=== PATIENT | male | born 2005 | race African-American/Black ===

== ENCOUNTER 2024-12-12 08:41 | Emergency (ER) | payer OTHER, SELFPAY ==
[2024-12-12 08:50] VITALS: BP 128/83; PULSE 70; RESP 18; TEMP 36.6; O2SAT 98; BMI 35.7
--- NOTE | 2024-12-12 09:07 | PC.NURSE ---
patient has bug bites to right arm, states he was outside Monday night when he got them, noted to be red from what appears to be scratching
--- NOTE | 2024-12-12 10:01 | ED_ITS ---
HPI - General Adult General Chief complaint: General Medical Stated complaint: bug bite Time Seen by Provider: 12/12/24 09:40 Source: patient, RN notes reviewed and old records reviewed Mode of arrival: ambulatory History of Present Illness ED Provider: Danelle Soriano PA-C [facility] narrative: 19-year-old male with no significant past medical history presenting to the ED complaining of red, inflamed, pruritic bug bites to NEO x 2 days. Denies any known new exposures, sleeping in new locations, camping, hiking. Admits he currently resides at [facility]. Related Data Previous Rx's ?Medication ?Instructions ?Recorded hydrocortisone 1 % topical cream 1 appl topical BID PRN rash #28.4 12/12/24 (Anti-Itch (hydrocortisone)) grams Allergies Allergy/AdvReac Type Severity Reaction Status Date / Time No Known Allergies Allergy Verified 12/12/24 08:51 Review of Systems Review of Systems: Yes all other systems are reviewed and are negative Constitutional: Constitutional: Reports as per [facility] Past Medical History Attestation statement: The following information was validated with the patient. Source: old records reviewed Social History Social History Advance Directives: No Advance Directives Information Provided: Yes Physical Exam ED Vital Signs: Vital Signs - 24 hr 12/12/24 08:50 12/12/24 10:08 Temperature 97.9 F Pulse Rate 70 65 Respiratory Rate 18 18 Blood Pressure 128/83 146/87 H Pulse Oximetry 98 95 Oxygen Delivery Method Room Air Room Air BMI result Body Mass Index 35.7 Const General: cooperative, healthy appearing and no acute distress Orientation/consciousness: patient oriented x3 Limitations: no limitations HENMT Head: Yes normal to inspection and Yes atraumatic Ears: hearing grossly normal bilaterally General nose exam: Normal external nose present Face and sinus: Yes normal facial exam Mouth: no drooling Eyes General: appearance normal, both eyes and all related structures EOM: EOMs intact bilaterally Neck Neck: Yes normal visual inspection and Yes no meningeal signs Resp Effort & Inspection: normal respiratory effort, no respiratory distress and no stridor Cardio Rate: regular rate Skin Other: Erythematous, inflamed bug bites noted to right forearm, hand, elbow with overlying excoriations. No vesicles/streaking. No palm/sole involvement. Wounds: no wounds Neuro General: patient oriented x3, tone normal and no meningeal signs Cranial nerves: Yes CN's II-XII intact bilaterally Gait exam (Neuro): Normal gait present Extrem General: Yes normal to inspection Medical Decision Making Medical Decision Making MDM Narrative: 19-year-old male with no significant past medical history presenting to the ED complaining of red, inflamed, pruritic bug bites to RUE x 2 days. On exam vital signs stable, NAD, nontoxic appearing, physical exam as noted above consistent with bug bites. No evidence of overlying cellulitis/infection or abscess formation. No evidence of anaphylaxis Plan: Topical hydrocortisone, Benadryl and Zyrtec recommended Please refer to course for remaining clinical decision making, interpretation of labs/imaging results, and discussions with consultants and/or family members. Results discussed with patient including worrisome signs and symptoms and strict return precautions, and when to return to the emergency department. They verbalized understanding and feel safe for discharge at this time. Differential Diagnosis Differential Diagnoses: The differential diagnosis associated with the presentation includes As above Independent Historian Clinical information obtained from an independent historian. History obtained from or confirmed by: Other External Record Review External record reviewed: Inpatient record, Office record, Outpatient record, Prior outpatient labs, Prior outpatient radiology, Primary care record and Outside ED record Tests considered The following testing was considered but not selected: As above Prescription Management I considered prescription management with: Other Chronic Conditions Patient?s care impacted by: Other Social Determinants Patient?s care significantly limited by Social Determinants of Health including: Other Social Determinant of Health Discharge Plan Discharge Clinical Impression: Bug bite Patient Disposition: Home, Self-Care Instructions: Itchy Skin (ED) Additional Instructions: Please apply topical hydrocortisone cream to your rash/bug bites You may also take Benadryl and Zyrtec at home Benadryl will make you drowsy, do not drive or operate machinery while taking In if areas begins look infected, or increasingly red, you have any shortness of breath or difficulty breathing/throat closing sensation return to the ED immediately Prescriptions: New hydrocortisone [Anti-Itch (HC)] 1 % cream 1 appl topical BID PRN (Reason: rash) Qty: 28.4 0RF Referrals: Physician,None [Primary Care Provider] - 5 days Stand Alone Forms: Work/School Release Discharge Date/Time: 12/12/24 10:23 Print Language: Burmese
[2024-12-12 10:08] VITALS: BP 146/87; PULSE 65; RESP 18; O2SAT 95
== END 2024-12-12 10:23 | disposition home or self-care (01) ==
PROVIDERS: Emergency Provider Emergency Medicine
DX: S40.861A Insect bite (nonvenomous) of right upper arm, initial encounter (principal); W57.XXXA Bitten or stung by nonvenomous insect and other nonvenomous arthropods, initial encounter; Y93.9 Activity, unspecified; Y92.9 Unspecified place or not applicable; Y99.9 Unspecified external cause status
CPT/HCPCS: 99283